=== PATIENT | female | born 1985 | race Hispanic/Latino ===

== ENCOUNTER 2017-08-18 17:24 | Emergency (ER) | payer SELFPAY ==
[2017-08-18 18:00] LABS: BASOPHILS % (AUTO) 0.4 % (0.0-5.0); EOSINOPHILS % (AUTO) 1.9 % (0.0-8.0); HEMATOCRIT 37.4 % (36-48); LYMPHOCYTES % (AUTO) 18.8 % (21.0-51.0); MEAN CORPUSCULAR HEMOGLOBIN 28.7 pg (27.0-33.0); MEAN CORPUSCULAR HGB CONC 33.4 g/dL (32.0-36.0); MEAN CORPUSCULAR VOLUME 85.9 fL (79-99); MONOCYTES % (AUTO) 5.4 % (3.0-13.0); NEUTROPHILS % (AUTO) 73.5 % (40.0-77.0); PLATELET COUNT (AUTO) 270 K/uL (130-400); RED BLOOD CELL COUNT(AUTO) 4.35 MIL/uL (4.00-5.50); RED CELL DISTRIBUTION WIDTH 14.1 % (11.0-15.5); WHITE BLOOD COUNT (AUTO) 9.2 K/uL (4.8-10.8)
[2017-08-18 18:08] LABS: APPEARANCE,URINE CLEAR (CLEAR); BILIRUBIN,URINE NEGATIVE (NEGATIVE); COLOR,URINE YELLOW (YELLOW); GLUCOSE, URINE (UA) 250 mg/dL (NEGATIVE); KETONES,URINE NEGATIVE (NEGATIVE); LEUKOCYTE ESTERASE ,URINE NEGATIVE (NEGATIVE); NITRATE,URINE NEGATIVE (NEGATIVE); OCCULT BLOOD,URINE NEGATIVE (NEGATIVE); PH,URINE 7.5 (5.0-8.0); PROTEIN,URINE NEGATIVE (NEGATIVE); UROBILINOGEN,URINE 0.2 mg/dL (0.2-1.0)
[2017-08-18 18:11] LABS: HCG,QUAL RESULT NEGATIVE (NEGATIVE)
[2017-08-18 18:14] LABS: CREATININE 0.7 mg/dL (0.5-1.5); POTASSIUM 3.9 mmol/L (3.5-5.1)
[2017-08-18 18:19] LABS: ALBUMIN 3.7 g/dL (3.5-5.0); BILIRUBIN,TOTAL 0.4 mg/dL (0.2-1.0)
[2017-08-18 19:34] LABS: BACTERIA,URINE Rare /HPF (None Seen); RBC,URINE 0-1 /HPF (0-1); SQUAMOUS EPITHELIAL CELL,UR Rare /LPF (0-2); WBC,URINE 0-1 /HPF (0-1)
[2017-12-13] MEDS ORDERED: HYDR25CA PO (14:54)
[2017-12-13] MEDS ORDERED: METF10004 PO (14:54)
[2017-12-13] MEDS ORDERED: LITH300C3 PO (14:54)
[2017-12-13] MEDS ORDERED: FLUO40CA7 PO (14:54)
[2017-12-13] MEDS ORDERED: TRAZ-144 PO (14:54)
[2017-12-14] MEDS ORDERED: INSLAN SQ (13:30)
== END 2017-08-18 19:07 | disposition home or self-care (01) ==
LOC: EDH 17:24
DX: J06.9 Acute upper respiratory infection, unspecified (principal); R10.30 Lower abdominal pain, unspecified; E11.9 Type 2 diabetes mellitus without complications; E78.5 Hyperlipidemia, unspecified; Z98.890 Other specified postprocedural states; Z72.0 Tobacco use
CPT/HCPCS: 36415; 80053; 81001; 81025; 85025; 87804

== ENCOUNTER 2017-08-24 22:29 | Emergency (ER) | payer SELFPAY ==
[2017-08-24] MEDS ORDERED: IPRATROPIUM/ALBUTEROL SULFATE 3 ML SOLUTION IH ONE (23:37)
[2017-12-13] MEDS ORDERED: LITH300C3 PO (14:54)
[2017-12-13] MEDS ORDERED: TRAZ-144 PO (14:54)
[2017-12-13] MEDS ORDERED: METF10004 PO (14:54)
[2017-12-13] MEDS ORDERED: HYDR25CA PO (14:54)
[2017-12-13] MEDS ORDERED: FLUO40CA7 PO (14:54)
[2017-12-14] MEDS ORDERED: INSLAN SQ (13:30)
== END 2017-08-25 00:09 | disposition home or self-care (01) ==
LOC: EDH 22:29
DX: J06.9 Acute upper respiratory infection, unspecified (principal); I10 Essential (primary) hypertension; E11.9 Type 2 diabetes mellitus without complications; F31.9 Bipolar disorder, unspecified; F41.9 Anxiety disorder, unspecified; Z98.890 Other specified postprocedural states; Z72.0 Tobacco use
CPT/HCPCS: 71045; 94640

== ENCOUNTER 2019-03-07 17:40 | Emergency (ER) | payer MEDICAID, OTHER ==
[~2019-03-07 17:40] MED LIST: FLUO40CA7 PO; HYDR25CA PO; INSLAN SQ; LITH300C3 PO; METF-446 PO; TRAZ-185 PO
== END 2019-03-07 18:31 | disposition home or self-care (01) ==
LOC: EDH 17:40
DX: M54.16 Radiculopathy, lumbar region (principal); F41.9 Anxiety disorder, unspecified; F31.9 Bipolar disorder, unspecified; E11.9 Type 2 diabetes mellitus without complications; E78.5 Hyperlipidemia, unspecified; Z79.4 Long term (current) use of insulin; Z98.51 Tubal ligation status
CPT/HCPCS: 99281

== ENCOUNTER 2020-05-02 17:20 | Emergency (ER) | payer MEDICARE ==
[2020-05-02 18:45] LABS: APPEARANCE,URINE Clear (CLEAR); BILIRUBIN,URINE Negative (NEGATIVE); COLOR,URINE Yellow (YELLOW); GLUCOSE, URINE (UA) >=1000 mg/dL (NEGATIVE); KETONES,URINE Trace mg/dL (NEGATIVE); LEUKOCYTE ESTERASE ,URINE Negative (NEGATIVE); NITRATE,URINE Negative (NEGATIVE); OCCULT BLOOD,URINE Negative (NEGATIVE); PH,URINE 6.5 (5.0-8.0); PROTEIN,URINE Negative (NEGATIVE)
[2020-05-02 18:51] LABS: BASOPHILS % (AUTO) 0.3 % (0.0-5.0); EOSINOPHILS % (AUTO) 1.6 % (0.0-8.0); HEMATOCRIT 37.9 % (36-48); LYMPHOCYTES % (AUTO) 35.4 % (21.0-51.0); MEAN CORPUSCULAR HEMOGLOBIN 24.5 pg (27.0-33.0); MEAN CORPUSCULAR HGB CONC 31.4 g/dL (32.0-36.0); MEAN CORPUSCULAR VOLUME 78.1 fL (79-99); MONOCYTES % (AUTO) 4.4 % (3.0-13.0); NEUTROPHILS % (AUTO) 58.1 % (40.0-77.0); PLATELET COUNT (AUTO) 328 K/uL (130-400); RED BLOOD CELL COUNT(AUTO) 4.85 MIL/uL (4.00-5.50); RED CELL DISTRIBUTION WIDTH 14.4 % (11.0-15.5); WHITE BLOOD COUNT (AUTO) 9.5 K/uL (4.8-10.8)
[2020-05-02 18:52] LABS: HCG,QUAL RESULT NEGATIVE (NEGATIVE)
[2020-05-02 18:53] LABS: BACTERIA,URINE Few /HPF (None Seen); RBC,URINE None Seen /HPF (0-1)
[2020-05-02 19:01] LABS: CREATININE 0.6 mg/dL (0.5-1.5); POTASSIUM 4.1 mmol/L (3.5-5.1)
[2020-05-02 19:05] LABS: ALBUMIN 3.9 g/dL (3.5-5.0); BILIRUBIN,TOTAL 0.3 mg/dL (0.2-1.0); TOTAL PROTEIN, SERUM 8.2 g/dL (6.0-8.3)
[2020-05-02] MEDS ORDERED: CEFTRIAXONE SODIUM 1 GM ONE (19:58)
[2020-05-02] MEDS ORDERED: SODIUM CHLORIDE 0.9% 1000ML 1,000 ML IV ONE (19:59)
[2020-05-02] MEDS ORDERED: DICYCLOMINE HCL 20 MG TAB ONE (19:59)
[2020-05-02] MEDS ORDERED: KETOROLAC TROMETHAMINE 30MG/ML ONE (19:59)
[2020-05-02] MEDS ORDERED: PHENAZOPYRIDINE HCL 200 MG TABLET ONE (19:59)
== END 2020-05-02 21:19 | disposition home or self-care (01) ==
LOC: EDH 17:20
DX: N39.0 Urinary tract infection, site not specified (principal); R11.2 Nausea with vomiting, unspecified; E86.0 Dehydration; F41.9 Anxiety disorder, unspecified; F31.9 Bipolar disorder, unspecified; E11.9 Type 2 diabetes mellitus without complications; E78.5 Hyperlipidemia, unspecified; Z98.890 Other specified postprocedural states
CPT/HCPCS: 36415; 80053; 81001; 81025; 82150; 83690; 85025; 93005; 96361; 96374; 96375; 99284; J0696; J1885; J7030

== ENCOUNTER 2020-05-03 20:20 | Emergency (ER) | payer MEDICARE ==
[2020-05-03 20:56] LABS: BASOPHILS % (AUTO) 0.1 % (0.0-5.0); EOSINOPHILS % (AUTO) 1.9 % (0.0-8.0); HEMATOCRIT 35.8 % (36-48); LYMPHOCYTES % (AUTO) 37.9 % (21.0-51.0); MEAN CORPUSCULAR HEMOGLOBIN 24.4 pg (27.0-33.0); MEAN CORPUSCULAR VOLUME 78.7 fL (79-99); MONOCYTES % (AUTO) 5.3 % (3.0-13.0); NEUTROPHILS % (AUTO) 54.5 % (40.0-77.0); PLATELET COUNT (AUTO) 264 K/uL (130-400); RED BLOOD CELL COUNT(AUTO) 4.55 MIL/uL (4.00-5.50); RED CELL DISTRIBUTION WIDTH 14.3 % (11.0-15.5); WHITE BLOOD COUNT (AUTO) 7.3 K/uL (4.8-10.8)
[2020-05-03] MEDS ORDERED: DiphenhydrAMINE HCL 50 MG/ML VIAL ONE (20:59)
[2020-05-03] MEDS ORDERED: METOCLOPRAMIDE 10 MG/2 ML VIAL ONE (20:59)
[2020-05-03] MEDS ORDERED: ONDANSETRON HCL 4 MG/2 ML VIAL ONE (21:00)
[2020-05-03] MEDS ORDERED: KETOROLAC TROMETHAMINE 30MG/ML ONE (21:00)
[2020-05-03 21:02] LABS: APPEARANCE,URINE Clear (CLEAR); BILIRUBIN,URINE Negative (NEGATIVE); COLOR,URINE Yellow (YELLOW); GLUCOSE, URINE (UA) >=1000 mg/dL (NEGATIVE); KETONES,URINE Trace mg/dL (NEGATIVE); LEUKOCYTE ESTERASE ,URINE Negative (NEGATIVE); NITRATE,URINE Negative (NEGATIVE); OCCULT BLOOD,URINE Negative (NEGATIVE); PROTEIN,URINE Trace mg/dL (NEGATIVE)
[2020-05-03 21:06] LABS: CREATININE 1.1 mg/dL (0.5-1.5); POTASSIUM 3.9 mmol/L (3.5-5.1)
[2020-05-03 21:11] LABS: ALBUMIN 3.3 g/dL (3.5-5.0); BILIRUBIN,TOTAL 0.2 mg/dL (0.2-1.0); TOTAL PROTEIN, SERUM 7.1 g/dL (6.0-8.3)
[2020-05-03 21:21] LABS: BACTERIA,URINE None Seen /HPF (None Seen); RBC,URINE None Seen /HPF (0-1); WBC,URINE 0-1 /HPF (0-1)
[2020-05-03] MEDS ORDERED: CEFTRIAXONE SODIUM 1 GM ONE (22:17)
[2020-05-03] MEDS ORDERED: TAMSULOSIN HCL 0.4 MG CAP.ER.24H ONE (22:17)
[2020-05-03] MEDS ORDERED: SODIUM CHLORIDE 0.9% 100 ML IV ONE (22:18)
== END 2020-05-03 23:14 | disposition home or self-care (01) ==
LOC: EDH 20:20
DX: N23 Unspecified renal colic (principal); E86.0 Dehydration; F41.9 Anxiety disorder, unspecified; F31.9 Bipolar disorder, unspecified; E11.9 Type 2 diabetes mellitus without complications; E78.5 Hyperlipidemia, unspecified; Z98.890 Other specified postprocedural states; Z72.0 Tobacco use
CPT/HCPCS: 36415; 74176; 80053; 81001; 81025; 83690; 85025; 87088; 96361; 96374; 96375 ×2; 99284; J0696; J1200; J1885; J2405; J2765

== ENCOUNTER 2020-10-01 10:20 | Emergency (ER) | payer MEDICARE ==
[2020-10-01] MEDS ORDERED: KETOROLAC 15MG/ML VIAL (15MG/ML) ONE (10:44)
== END 2020-10-01 13:24 | disposition home or self-care (01) ==
LOC: EDH 10:20
DX: M25.562 Pain in left knee (principal); F41.9 Anxiety disorder, unspecified; F31.9 Bipolar disorder, unspecified; E11.9 Type 2 diabetes mellitus without complications; E78.5 Hyperlipidemia, unspecified; Z98.51 Tubal ligation status; Z98.890 Other specified postprocedural states; Z72.0 Tobacco use
CPT/HCPCS: 73562; 93971; 96372; 99284; J1885

== ENCOUNTER 2021-01-29 09:35 | Emergency (ER) | payer MEDICARE ==
[~2021-01-29] VITALS: Ht 154.9 cm; Wt 81.6 kg
[2021-01-29 09:41] VITALS: BP 136/85
[2021-01-29 11:08] LABS: APPEARANCE,URINE Clear (CLEAR); BILIRUBIN,URINE Negative (NEGATIVE); COLOR,URINE Yellow (YELLOW); GLUCOSE, URINE (UA) >=1000 mg/dL (NEGATIVE); KETONES,URINE Negative (NEGATIVE); LEUKOCYTE ESTERASE ,URINE Negative (NEGATIVE); NITRATE,URINE Negative (NEGATIVE); OCCULT BLOOD,URINE Negative (NEGATIVE); PROTEIN,URINE Negative (NEGATIVE); UROBILINOGEN,URINE 0.2 mg/dL (0.2-1.0)
[2021-01-29 11:09] LABS: BASOPHILS % (AUTO) 0.3 % (0.0-5.0); EOSINOPHILS % (AUTO) 1.6 % (0.0-8.0); LYMPHOCYTES % (AUTO) 31.6 % (21.0-51.0); MEAN CORPUSCULAR HEMOGLOBIN 23.2 pg (27.0-33.0); MEAN CORPUSCULAR VOLUME 77.2 fL (79-99); MONOCYTES % (AUTO) 4.7 % (3.0-13.0); NEUTROPHILS % (AUTO) 61.5 % (40.0-77.0); PLATELET COUNT (AUTO) 278 K/uL (130-400); RED BLOOD CELL COUNT(AUTO) 4.79 MIL/uL (4.00-5.50); RED CELL DISTRIBUTION WIDTH 14.6 % (11.0-15.5)
[2021-01-29 11:19] LABS: ALBUMIN 3.6 g/dL (3.5-5.0); BILIRUBIN,TOTAL 0.6 mg/dL (0.2-1.0); CREATININE 0.6 mg/dL (0.5-1.5); POTASSIUM 4.3 mmol/L (3.5-5.1); TOTAL PROTEIN, SERUM 7.2 g/dL (6.0-8.3)
[2021-01-29 11:35] LABS: BACTERIA,URINE Rare /HPF (None Seen); RBC,URINE None Seen /HPF (0-1); WBC,URINE 0-1 /HPF (0-1)
== END 2021-01-29 13:35 | disposition home or self-care (01) ==
LOC: EDH 09:35
DX: E11.65 Type 2 diabetes mellitus with hyperglycemia (principal); F41.1 Generalized anxiety disorder; F31.9 Bipolar disorder, unspecified; Z79.4 Long term (current) use of insulin; Z79.899 Other long term (current) drug therapy
CPT/HCPCS: 36415; 80053; 81001; 81025; 85025

== ENCOUNTER 2021-07-04 09:07 | Emergency (ER) | payer MEDICARE ==
[~2021-07-04] VITALS: Ht 154.9 cm; Wt 72.6 kg
[2021-07-04 09:08] VITALS: BP 125/81
[2021-07-04 09:31] LABS: BASOPHILS % (AUTO) 0.2 % (0.0-5.0); EOSINOPHILS % (AUTO) 1.4 % (0.0-8.0); HEMATOCRIT 37.3 % (36-48); LYMPHOCYTES % (AUTO) 25.9 % (21.0-51.0); MEAN CORPUSCULAR HEMOGLOBIN 23.5 pg (27.0-33.0); MEAN CORPUSCULAR HGB CONC 30.6 g/dL (32.0-36.0); MEAN CORPUSCULAR VOLUME 76.9 fL (79-99); PLATELET COUNT (AUTO) 270 K/uL (130-400); RED BLOOD CELL COUNT(AUTO) 4.85 MIL/uL (4.00-5.50); RED CELL DISTRIBUTION WIDTH 15.6 % (11.0-15.5); WHITE BLOOD COUNT (AUTO) 4.4 K/uL (4.8-10.8)
[2021-07-04 09:31] LABS: APPEARANCE,URINE Clear (CLEAR); BILIRUBIN,URINE Negative (NEGATIVE); COLOR,URINE Yellow (YELLOW); GLUCOSE, URINE (UA) >=1000 mg/dL (NEGATIVE); KETONES,URINE Trace mg/dL (NEGATIVE); LEUKOCYTE ESTERASE ,URINE Negative (NEGATIVE); NITRATE,URINE Negative (NEGATIVE); OCCULT BLOOD,URINE Trace (NEGATIVE); PH,URINE 6.5 (5.0-8.0); PROTEIN,URINE Negative (NEGATIVE)
[2021-07-04 09:35] LABS: CREATININE 0.5 mg/dL (0.5-1.5); POTASSIUM 3.8 mmol/L (3.5-5.1)
[2021-07-04 09:38] LABS: AMPHET/METH SCREEN,URINE NEGATIVE (NEGATIVE); BARBITURATE SCREEN, URINE NEGATIVE (NEGATIVE); BENZODIAZEPINES SCREEN,URINE NEGATIVE (NEGATIVE); CANNABINOID SCREEN,URINE NEGATIVE (NEGATIVE); COCAINE SCREEN,URINE NEGATIVE (NEGATIVE); OPIATE SCREEN,URINE NEGATIVE (NEGATIVE); PHENCYCLIDINE SCREEN,URINE NEGATIVE (NEGATIVE)
[2021-07-04 09:39] LABS: HCG,QUAL RESULT NEGATIVE (NEGATIVE)
[2021-07-04 09:40] LABS: ALBUMIN 3.7 g/dL (3.5-5.0); BILIRUBIN,TOTAL 0.4 mg/dL (0.2-1.0); TOTAL PROTEIN, SERUM 7.4 g/dL (6.0-8.3)
[2021-07-04 09:51] LABS: RBC,URINE 0-1 /HPF (0-1)
[2021-07-04 09:52] LABS: BACTERIA,URINE Few /HPF (None Seen); SQUAMOUS EPITHELIAL CELL,UR 0-2 /HPF (0-2)
[2021-07-04] MEDS ORDERED: IOHEXOL-350 75 ML VIAL IV ONE (14:39)
[2021-07-04] MEDS ORDERED: METR375C2 PO (15:41)
[2021-07-04] MEDS ORDERED: FAMO20TA8 PO (15:41)
== END 2021-07-04 15:54 | disposition home or self-care (01) ==
LOC: EDH 09:07
DX: K52.9 Noninfective gastroenteritis and colitis, unspecified (principal); F32.9 Major depressive disorder, single episode, unspecified; F41.9 Anxiety disorder, unspecified; E11.9 Type 2 diabetes mellitus without complications; Z79.4 Long term (current) use of insulin; Z79.899 Other long term (current) drug therapy
CPT/HCPCS: 36415; 74177; 80053; 80305; 81001; 81025; 85025; 99285; Q9967

== ENCOUNTER 2021-08-15 17:12 | Emergency (ER) | payer MEDICARE, OTHER ==
[~2021-08-15] VITALS: Ht 154.9 cm; Wt 79.4 kg
[~2021-08-15 17:12] MED LIST changes: +FAMO20TA8 PO; +METR375C2 PO
[2021-08-15] MEDS ORDERED: CYCLOBENZAPRINE HCL 10 MG TABLET PO ONE (17:30)
[2021-08-15] MEDS ORDERED: KETOROLAC 60 MG VIAL (30MG/ML) IM ONE (17:30)
[2021-08-15] MEDS ORDERED: NAPR-1180 PO (18:00)
[2021-08-15] MEDS ORDERED: CYCL10TA16 PO (18:00)
[2021-08-15 18:05] VITALS: BP 133/92
== END 2021-08-15 18:25 | disposition home or self-care (01) ==
LOC: EDH 17:12
DX: S39.012A Strain of muscle, fascia and tendon of lower back, initial encounter (principal); S80.01XA Contusion of right knee, initial encounter; E11.9 Type 2 diabetes mellitus without complications; E66.9 Obesity, unspecified; Z79.1 Long term (current) use of non-steroidal anti-inflammatories (NSAID); Z79.4 Long term (current) use of insulin; Z68.33 Body mass index [BMI] 33.0-33.9, adult; V49.49XA Driver injured in collision with other motor vehicles in traffic accident, initial encounter; Y93.89 Activity, other specified; Y92.89 Other specified places as the place of occurrence of the external cause; Y99.8 Other external cause status
CPT/HCPCS: 72100; 73562; 81025; 96372; 99284; J1885

== ENCOUNTER 2022-10-12 11:30 | Emergency (ER) | payer MEDICARE ==
[~2022-10-12] VITALS: Ht 154.9 cm; Wt 73.9 kg
[~2022-10-12 11:30] MED LIST changes: +CYCL10TA16 PO; +NAPR-1180 PO
[2022-10-12 11:51] LABS: HCG,QUALITATIVE URINE NEGATIVE (NEGATIVE)
[2022-10-12 11:52] LABS: APPEARANCE,URINE CLEAR (CLEAR); BILIRUBIN,URINE NEGATIVE (NEGATIVE); COLOR,URINE COLORLESS (YELLOW); GLUCOSE, URINE (UA) >=1000 mg/dL (NEGATIVE); KETONES,URINE NEGATIVE (NEGATIVE); LEUKOCYTE ESTERASE ,URINE NEGATIVE Leu/uL (NEGATIVE); NITRATE,URINE NEGATIVE (NEGATIVE); OCCULT BLOOD,URINE NEGATIVE (NEGATIVE); PROTEIN,URINE NEGATIVE (NEGATIVE); UROBILINOGEN,URINE 0.2 mg/dL (0.2-1.0)
[2022-10-12 11:53] LABS: MUCUS,URINE RARE LPF (None Seen); RBC,URINE 0-1 /HPF (0-1); SQUAMOUS EPITHELIAL CELL,UR RARE /HPF (0-2); WBC,URINE 0-1 /HPF (0-1)
[2022-10-12 11:53] LABS: BASOPHILS % (AUTO) 0.3 % (0.0-5.0); EOSINOPHILS % (AUTO) 0.8 % (0.0-8.0); HEMATOCRIT 35.5 % (36-48); LYMPHOCYTES % (AUTO) 23.8 % (21.0-51.0); MEAN CORPUSCULAR HEMOGLOBIN 20.4 pg (27.0-33.0); MEAN CORPUSCULAR HGB CONC 29.3 g/dL (32.0-36.0); MEAN CORPUSCULAR VOLUME 69.7 fL (79-99); NEUTROPHILS % (AUTO) 70.8 % (40.0-77.0); PLATELET COUNT (AUTO) 307 K/uL (130-400); RED BLOOD CELL COUNT(AUTO) 5.09 MIL/uL (4.00-5.50); RED CELL DISTRIBUTION WIDTH 16.9 % (11.0-15.5); WHITE BLOOD COUNT (AUTO) 7.9 K/uL (4.8-10.8)
[2022-10-12 12:05] LABS: CREATININE 0.6 mg/dL (0.5-1.5); POTASSIUM 3.5 mmol/L (3.5-5.1)
[2022-10-12 12:06] LABS: TOTAL PROTEIN, SERUM 8.1 g/dL (6.0-8.3)
[2022-10-12] MEDS ORDERED: KETOROLAC 15MG/ML VIAL (15MG/ML) IV ONE (13:00)
[2022-10-12] MEDS ORDERED: ONDANSETRON 4MG INJ IVP ONE (13:00)
[2022-10-12] MEDS ORDERED: 0.9%NACL 1000ML 1,000 ML IV ONE (13:00)
[2022-10-12] MEDS ORDERED: AZITHROMYCIN 250 MG TABLET PO ONE (14:00)
[2022-10-12] MEDS ORDERED: CEFTRIAXONE 500MG VIAL IM SCH (14:00)
[2022-10-12] MEDS ORDERED: METR-172 PO (14:38)
[2022-10-12] MEDS ORDERED: ONDA4TAB10 PO (14:38)
[2022-10-12] MEDS ORDERED: NAPR-1023 PO (14:38)
[2022-10-12 15:07] VITALS: BP 120/86
== END 2022-10-12 15:23 | disposition home or self-care (01) ==
LOC: EDH 11:30
DX: N76.0 Acute vaginitis (principal); B96.89 Other specified bacterial agents as the cause of diseases classified elsewhere; E11.9 Type 2 diabetes mellitus without complications; F31.9 Bipolar disorder, unspecified; F41.9 Anxiety disorder, unspecified; Z79.84 Long term (current) use of oral hypoglycemic drugs; Z79.899 Other long term (current) drug therapy; Z98.890 Other specified postprocedural states
CPT/HCPCS: 99285; 96374; 76856; 96375; 80053; 85025; 87210; 87797; 87486; 81001; 81025; 36415; 96372; J7030; J2405; J0696; J1885

== ENCOUNTER 2022-12-16 17:25 | Emergency (ER) | payer MEDICARE ==
[~2022-12-16 17:25] MED LIST changes: +METR-172 PO; +NAPR-1023 PO; +ONDA4TAB10 PO
== END 2022-12-16 17:59 | disposition left against medical advice (07) ==
LOC: EDH 17:25
DX: M79.89 Other specified soft tissue disorders (principal); Z53.21 Procedure and treatment not carried out due to patient leaving prior to being seen by health care provider

== ENCOUNTER 2023-01-27 22:20 | Emergency (ER) | payer MEDICARE ==
[~2023-01-27] VITALS: Ht 154.9 cm; Wt 75.7 kg
[2023-01-27 22:22] VITALS: BP 137/84; PULSE 86; RESP 18
[2023-01-27] MEDS ORDERED: CARB100C9 PO (22:42)
[2023-01-27] MEDS ORDERED: KETOROLAC 60 MG VIAL (30MG/ML) IM ONE (23:00)
== END 2023-01-27 23:46 | disposition home or self-care (01) ==
LOC: EDH 22:20
DX: G50.0 Trigeminal neuralgia (principal); E11.9 Type 2 diabetes mellitus without complications; Z79.84 Long term (current) use of oral hypoglycemic drugs
CPT/HCPCS: 99283; 96372; J1885

== ENCOUNTER 2024-04-21 08:05 | Inpatient (IN) | payer MEDICARE ==
[~2024-04-21] VITALS: Ht 152.4 cm; Wt 75.2 kg
[~2024-04-21 08:05] MED LIST changes: +CARB100C9 PO; +ONDA-243 PO; -ONDA4TAB10 PO
[2024-04-21 08:41] LABS: BASOPHILS # (AUTO) 0.02 K/uL (0.00-0.20); BASOPHILS % (AUTO) 0.2 % (0.0-5.0); EOSINOPHILS # (AUTO) 0.14 K/uL (0.00-0.70); EOSINOPHILS % (AUTO) 1.6 % (0.0-8.0); HEMATOCRIT 40.2 % (36-48); IMMATURE GRANULOCYTE ABSOLUTE 0.03 K/uL (0-1); LYMPHOCYTES # (AUTO) 1.3 K/uL (1.0-4.8); LYMPHOCYTES % (AUTO) 14.8 % (21.0-51.0); MEAN CORPUSCULAR HEMOGLOBIN 27.6 pg (27.0-33.0); MEAN CORPUSCULAR HGB CONC 31.8 g/dL (32.0-36.0); MEAN CORPUSCULAR VOLUME 86.6 fL (79-99); MONOCYTES # (AUTO) 0.4 K/uL (0.1-1.0); MONOCYTES % (AUTO) 4.9 % (3.0-13.0); NEUTROPHILS % (AUTO) 78.2 % (40.0-77.0); PLATELET COUNT (AUTO) 228 K/uL (130-400); RED BLOOD CELL COUNT(AUTO) 4.64 MIL/uL (4.00-5.50); RED CELL DISTRIBUTION WIDTH 16.8 % (11.0-15.5); WHITE BLOOD COUNT (AUTO) 8.9 K/uL (4.8-10.8)
[2024-04-21 08:46] LABS: CREATININE 0.9 mg/dL (0.5-1.0)
[2024-04-21] MEDS: ondanSETRON 4MG INJ IVP ONE (08:51)
[2024-04-21] MEDS: acetaMINOPHEN 500 MG TABLET PO ONE (08:51)
[2024-04-21 09:18] LABS: HCG,QUALITATIVE URINE NEGATIVE (NEGATIVE)
[2024-04-21 09:51] LABS: APPEARANCE,URINE CLOUDY (CLEAR); BACTERIA,URINE MOD /HPF (None Seen); BILIRUBIN,URINE NEGATIVE (NEGATIVE); COLOR,URINE LIGHT-YELLOW (YELLOW); GLUCOSE, URINE (UA) >=1000 mg/dL (NEGATIVE); KETONES,URINE NEGATIVE (NEGATIVE); LEUKOCYTE ESTERASE ,URINE 500 Leu/uL (NEGATIVE); NITRATE,URINE NEGATIVE (NEGATIVE); PH,URINE 5.5 (5.0-8.0); PROTEIN,URINE NEGATIVE (NEGATIVE); SQUAMOUS EPITHELIAL CELL,UR RARE /HPF (0-2); UROBILINOGEN,URINE 0.2 mg/dL (0.2-1.0); WBC CLUMP FEW /HPF (0-1); WBC,URINE TNTC /HPF (0-1)
[2024-04-21] MEDS: 0.9%NACL 1000ML 1,000 ML IV ONE (09:53)
[2024-04-21] MEDS: cefTRIAXone 1G VIAL IVPB ONE (10:54)
[2024-04-21] MEDS: 0.9%NACL 1000ML 1,000 ML IV SCH (11:47)
[2024-04-21] MEDS: INSULIN humuLIN R 100 UNIT/ML 3ML SQ SCH (12:00)
[2024-04-21 12:03] LABS: AMPHET/METH SCREEN,URINE NEGATIVE (NEGATIVE); BARBITURATE SCREEN, URINE NEGATIVE (NEGATIVE); BENZODIAZEPINES SCREEN,URINE NEGATIVE (NEGATIVE); CANNABINOID SCREEN,URINE NEGATIVE (NEGATIVE); COCAINE SCREEN,URINE NEGATIVE (NEGATIVE); OPIATE SCREEN,URINE NEGATIVE (NEGATIVE); PHENCYCLIDINE SCREEN,URINE NEGATIVE (NEGATIVE)
[2024-04-21 12:06] LABS: HEMOGLOBIN A1C 9.3 % (4.0-6.0)
[2024-04-21] MEDS ORDERED: 0.9%NACL 50ML IV SCH (13:30)
[2024-04-21] MEDS ORDERED: EMPA10TA PO (13:50)
[2024-04-21] MEDS ORDERED: ATOR10 PO (13:50)
[2024-04-21] MEDS ORDERED: metRONIDazole 500MG/100ML BAG 100 ML IVPB SCH (14:00)
[2024-04-21 14:43] VITALS: BP 123/75; PULSE 74; RESP 18; TEMP 98.2
[2024-04-21 16:23] VITALS: BP 114/73; PULSE 78; RESP 18; TEMP 98
[2024-04-21 19:47] VITALS: O2SAT 100
[2024-04-21 20:00] VITALS: BP 135/88; PULSE 80; RESP 18; TEMP 98
[2024-04-21] MEDS: FAMOTIDINE 20MG VIAL IV SCH (21:36)
[2024-04-21] MEDS: atorVAStatin 10 MG TABLET PO SCH (21:36)
[2024-04-21] MEDS: ZOSYN 3.375GM +NS 50ML IVPB SCH (21:36)
[2024-04-21] MEDS: ketOROlac 15MG/ML VIAL (15MG/ML) IV PRN (21:50)
[2024-04-21] MEDS ORDERED: CEFTRIAXONE 2GM VIAL IVPB SCH (22:00)
[2024-04-22] VITALS (8 sets, daily range): BP systolic 110–132; BP diastolic 66–85; PULSE 69–83; RESP 16–18; TEMP 98–98.4; O2SAT 98–99
[2024-04-22] MEDS: INSULIN humuLIN R 100 UNIT/ML 3ML SQ SCH (00:17)
[2024-04-22 07:19] LABS: CREATININE 0.6 mg/dL (0.5-1.0); POTASSIUM 3.8 mmol/L (3.5-5.1)
[2024-04-22 07:23] LABS: BASOPHILS # (AUTO) 0.01 K/uL (0.00-0.20); BASOPHILS % (AUTO) 0.2 % (0.0-5.0); EOSINOPHILS # (AUTO) 0.15 K/uL (0.00-0.70); EOSINOPHILS % (AUTO) 2.4 % (0.0-8.0); HEMATOCRIT 38.3 % (36-48); IMMATURE GRANULOCYTE ABSOLUTE 0.02 K/uL (0-1); LYMPHOCYTES # (AUTO) 1.7 K/uL (1.0-4.8); LYMPHOCYTES % (AUTO) 27.1 % (21.0-51.0); MEAN CORPUSCULAR HGB CONC 32.1 g/dL (32.0-36.0); MEAN CORPUSCULAR VOLUME 87.2 fL (79-99); MONOCYTES # (AUTO) 0.4 K/uL (0.1-1.0); MONOCYTES % (AUTO) 5.6 % (3.0-13.0); NEUTROPHILS % (AUTO) 64.4 % (40.0-77.0); PLATELET COUNT (AUTO) 203 K/uL (130-400); RED BLOOD CELL COUNT(AUTO) 4.39 MIL/uL (4.00-5.50); WHITE BLOOD COUNT (AUTO) 6.2 K/uL (4.8-10.8)
[2024-04-22] MEDS: ENOXAPARIN SODIUM 30 MG/0.3 ML SQ SCH (08:42)
[2024-04-22] MEDS: acetaMINOPHEN 500 MG TABLET PO PRN (12:30)
[2024-04-22] MEDS: atorVAStatin 20 MG TABLET PO SCH (21:23)
[2024-04-22] MEDS: EMPAGLIFLOZIN 10MG TABLET PO SCH (21:23)
[2024-04-23 04:26] VITALS: BP 115/70; PULSE 68; RESP 16; TEMP 98.3
[2024-04-23 05:36] LABS: BASOPHILS # (AUTO) 0.01 K/uL (0.00-0.20); BASOPHILS % (AUTO) 0.2 % (0.0-5.0); EOSINOPHILS # (AUTO) 0.18 K/uL (0.00-0.70); EOSINOPHILS % (AUTO) 3.1 % (0.0-8.0); HEMATOCRIT 36.7 % (36-48); IMMATURE GRANULOCYTE ABSOLUTE 0.01 K/uL (0-1); LYMPHOCYTES # (AUTO) 1.8 K/uL (1.0-4.8); LYMPHOCYTES % (AUTO) 30.7 % (21.0-51.0); MEAN CORPUSCULAR HEMOGLOBIN 27.7 pg (27.0-33.0); MEAN CORPUSCULAR HGB CONC 32.2 g/dL (32.0-36.0); MEAN CORPUSCULAR VOLUME 86.2 fL (79-99); MONOCYTES # (AUTO) 0.5 K/uL (0.1-1.0); NEUTROPHILS # (AUTO) 3.3 K/uL (1.8-7.7); NEUTROPHILS % (AUTO) 57.8 % (40.0-77.0); PLATELET COUNT (AUTO) 201 K/uL (130-400); RED BLOOD CELL COUNT(AUTO) 4.26 MIL/uL (4.00-5.50); RED CELL DISTRIBUTION WIDTH 15.7 % (11.0-15.5); WHITE BLOOD COUNT (AUTO) 5.8 K/uL (4.8-10.8)
[2024-04-23 06:01] LABS: ALBUMIN 2.8 g/dL (3.5-5.0); BILIRUBIN,TOTAL 0.5 mg/dL (0.2-1.0); CREATININE 0.7 mg/dL (0.5-1.0); MAGNESIUM 1.8 mg/dL (1.80-2.40); POTASSIUM 3.8 mmol/L (3.5-5.1); TOTAL PROTEIN, SERUM 6.4 g/dL (6.0-8.3)
[2024-04-23 08:00] VITALS: BP 114/75; PULSE 72; RESP 18; TEMP 98.3; O2SAT 98
[2024-04-23] MEDS ORDERED: LEVO-70 PO (08:56)
== END 2024-04-23 11:25 | disposition home or self-care (01) | DRG 690 ==
LOC: EDH 08:05 → EDHIP 11:35 → 3CH 14:10
PROVIDERS: ADMIT Internal Medicine; ATTEND Internal Medicine
DX: N30.00 Acute cystitis without hematuria (principal); K57.32 Diverticulitis of large intestine without perforation or abscess without bleeding; E87.1 Hypo-osmolality and hyponatremia; N12 Tubulo-interstitial nephritis, not specified as acute or chronic; E78.00 Pure hypercholesterolemia, unspecified; F39 Unspecified mood [affective] disorder; F43.10 Post-traumatic stress disorder, unspecified; I10 Essential (primary) hypertension; M51.26 Other intervertebral disc displacement, lumbar region; E11.649 Type 2 diabetes mellitus with hypoglycemia without coma; Z87.442 Personal history of urinary calculi
CPT/HCPCS: 36415; 72131; 74176; 80048; 80053; 80305; 81001; 81025; 82948; 83036; 83735; 84145; 84443; 84702; 85025; 86140; 87086; 87186; 96361; 96365; 96375; G0378; J0696; J1650; J1815; J1885; J2405; J2543; J3490; J7030